=== PATIENT | male | born 1975 | race Hispanic/Latino ===

== ENCOUNTER → 2017-12-17 | Day surgery (SDC) | payer OTHER ==
[~2017-12-17] MED LIST: AMLODIPINE BESYL5 MG PO; ATORVASTATIN CA10 MG PO; BENICAR40 MG; FENTANYL CITRATE/PF 100MCG/2 ML INJ ONE; IMPRIMIS EYE DROPS; METFORMIN HCL500 MG PO; MIDAZOLAM HCL 2 MG/2 ML VIAL ONE; OR PHACO EYE KIT ONE; PREOP PHACO EYE KIT ONE; TRADJENTA5 MG
--- OUTSIDE RECORDS SUMMARY | 2017-12-17 10:40 | XMS REPORT | Continuity of Care Document ---
Author Author [facility] Interface Address Unknown Phone Unavailable Problems Problem Status Onset Date Classification Date Reported Comments Source UNK Active 11/17/2013 [facility] 278.01/44175 Active 11/17/2013 [facility] 530.81 Active 11/17/2013 [facility] Cholesterol level<sup>1</sup> Resolved Problem 12/20/2013 1high [facility] Diabetes mellitus type 2 Resolved Problem 12/20/2013 [facility] Hepatitis A Resolved Problem 12/20/2013 [facility] Sleep apnea<sup>2</sup> Resolved Problem 12/20/2013 2use CPAP [facility] MORBID OBESITY Active [facility] Medications Medication Details Route Status Patient Instructions Ordering Provider Order Date Source Acetaminophen 650 mg, 20.3 mL, Route: PO, Drug form: LIQ, Q4H, Dosing Weight 178.636, kg, PRN Pain Score 1-3, Start date: 12/18/13 14:09:00, Duration: 30 day, Stop date: 01/17/14 14:08:00Notes: Max yrwyvnjtjfshl=8453dl/day (4 gm/day). (Same as: Tylenol) Inactive 12/18/2013 [facility] omeprazole 20 mg oral delayed release capsule 20 mg=1 cap, PO, BID, # 60 cap, 0 Refill(s) Active 12/18/2013 [facility] Sucralfate 100 MG/ML Oral Suspension [Carafate] 1 gm=10 ml, PO, Before Meals & Bedtime, # 200 ml, 0 Refill(s) Active 12/18/2013 [facility] Tylenol with Codeine 120 mg-12 mg/5 mL oral liquid 15 ml, PO, Q4H, Pain, Q4-6H as needed for pain, # 240 mL, 0 Refill(s)Special Instructions: Q4-6H as needed for pain Active 12/18/2013 [facility] Enoxaparin 30 mg, 0.3 mL, Route: SUB-Q, Drug form: INJ, [id number], Dosing Weight 178.636, kg, Start date: 12/18/13 6:00:00, Duration: 30 day, Stop date: 01/16/14 18:00:00Notes: (Same as: Lovenox) Inactive 12/18/2013 [facility] Famotidine 20 mg, 2 mL, Route: IVP, Drug form: INJ, Q12H, Dosing Weight 178.636, kg, Start date: 12/17/13 21:00:00, Duration: 30 day, Stop date: 01/16/14 9:00:00Notes: (Same as: Pepcid) Can be dilute in 5-10cc NS IVP: Slow IV push over at least 2 minutes. No Longer Active 12/18/2013 [facility] Metoclopramide 10 mg, 2 mL, Route: IVP, Drug form: INJ, Q8H-05, Dosing Weight 179.091, kg, Start date: 12/17/13 21:00:00, Duration: 30 day, Stop date: 01/16/14 13:00:00Notes: (Same as: Reglan) No Longer Active 12/18/2013 [facility] Promethazine 12.5 mg, 0.5 mL, Route: IM, Drug form: INJ, Q4Hnow, Dosing Weight 179.091, kg, Start date: 12/17/13 17:00:00, Duration: 30 day, Stop date: 01/16/14 13:00:00Notes: Do not give IV push. (Same as: Phen ergan) No Longer Active 12/17/2013 [facility] Sucralfate 100 MG/ML Oral Suspension [Carafate] 1 gm, 10 mL, Route: PO, Drug form: SUSP, QID-Before Meals, Dosing Weight 179.091, kg, Start date: 12/17/13 16:30:00, Duration: 30 day, Stop date: 01/16/14 11:30:00Notes: Enteral feeds may interfere with the absorption of this medication. Shake well. Take 1 hr before or 2 hrs after antacids, dairy pdt, minerals & meals. (Same As: Carafate) No Longer Active 12/17/2013 [facility] Insulin, Aspart, Human 4 unit, 0.04 mL, Route: SUB-Q, Drug form: SOLN, Bedtime, Dosing Weight 178.636, kg, PRN Blood Glucose Results, Start date: 12/17/13 16:20:00, Duration: 30 day, Stop date: 01/16/14 16:19:00Notes: Roll in palms of hands gently; Do not shake vigorously. (Same as: NovoLOG) "single patient use only" Stable for 28 days at room temperature. Expires in days from Date No Longer Active 12/17/2013 [facility] Glucagon 1 mg, Route: IM, Drug form: PDR/INJ, PRN, Dosing Weight 178.636, kg, PRN Blood Glucose Results, Start date: 12/17/13 16:20:00, Duration: 30 day, Stop date: 01/16/14 16:19:00 No Longer Active 12/17/2013 [facility] Dextrose 50% Syringe 12.5 gm, 25 mL, Route: IVP, Drug Form: INJ, Dosing Weight 178.636, kg, PRN, PRN Blood Glucose Results, Start date: 12/17/13 16:20:00, Duration: 30 day, Stop date: 01/16/14 16:19:00 No Longer Active 12/17/2013 [facility] Ondansetron 4 mg, 2 mL, Route: IVP, Drug form: INJ, Q4H, Dosing Weight 179.091, kg, Start date: 12/17/13 16:00:00, Duration: 30 day, Stop date: 01/16/14 12:00:00Notes: (Same as: Zofran) No Longer Active 12/17/2013 [facility] Enoxaparin 30 mg, Route: SUB-Q, Drug form: INJ, [id number], Dosing Weight 178.636, kg, Start date: 12/17/13 15:00:00, Duration: 30 day, Stop date: 01/16/14 3:00:00 Inactive 12/17/2013 [facility] Acetaminophen 325 MG / Hydrocodone Bitartrate 10 MG Oral Tablet [Conklin 10/325] 1 tab, Route: PO, Dosing Weight 178.636, kg, ONCE, Start date: 12/17/13 14:45:00, Stop date: 12/17/13 14:45:00 Inactive 12/17/2013 [facility] Hydralazine 10 mg, Route: IVP, Q20Min, Dosing Weight 178.636, kg, PRN Elevated BP, Start date: 12/17/13 14:45:00, Duration: 2 doses or times, Stop date: Limited # of times Inactive 12/17/2013 [facility] Metoprolol 1 mg, Route: IVP, Q5Min, Dosing Weight 178.636, kg, PRN Other -See Comment, Start date: 12/17/13 14:45:00, Duration: 5 doses or times, Stop date: Limited # of times Inactive 12/17/2013 [facility] Flumazenil 0.2 mg, Route: IVP, PRN, Dosing Weight 178.636, kg, PRN Benzodiazepine Reversal, Initial dose, Start date: 12/17/13 14:45:00, Duration: 30 day, Stop date: 01/16/14 14:44:00 Inactive 12/17/2013 [facility] Ondansetron 4 mg, Route: IVP, ONCE, Dosing Weight 178.636, kg, PRN Nausea & Vomiting, Start date: 12/17/13 14:45:00 Inactive 12/17/2013 [facility] Fentanyl 25 microgram, Route: IVP, Q5Min, Dosing Weight 178.636, kg, PRN Pain Score 4-6, Start date: 12/17/13 14:45:00, Duration: 4 doses or times, Stop date: Limited # of times Inactive 12/17/2013 [facility] Hydromorphone 0.5 mg, Route: IVP, Q5Min, Dosing Weight 178.636, kg, PRN Pain Score 7-10, Start date: 12/17/13 14:45:00, Duration: 4 doses or times, Stop date: Limited # of times Inactive 12/17/2013 [facility] Oxycodone 5 mg, Route: PO, Drug form: TAB, Q4H, Dosing Weight 178.636, kg, PRN Pain Score 4-6, Start date: 12/17/13 14:45:00, Duration: 30 day, Stop date: 01/16/14 14:44:00 Inactive 12/17/2013 [facility] Naloxone 0.04 mg, Route: IVP, Q2MIN, Dosing Weight 178.636, kg, PRN Narcotic Reversal, Start date: 12/17/13 14:45:00, Duration: 8 doses or times, Stop date: Limited # of times Inactive 12/17/2013 [facility] Promethazine 25 mg, 1 supp, Route: SC, Drug form: SUPP, Q4H, Dosing Weight 179.091, kg, PRN Nausea & Vomiting, Start date: 12/17/13 14:09:00, Duration: 30 day, Stop date: 01/16/14 14:08:00Notes: (Same as: Phenerg an) No Longer Active 12/17/2013 [facility] Hydromorphone 0.5 mg, 0.5 mL, Route: IV, Drug form: INJ, Q3H, Dosing Weight 179.091, kg, PRN Pain Score 7-10, Start date: 12/17/13 14:09:00, Duration: 30 day, Stop date: 01/16/14 14:08:00 No Longer Active 12/17/2013 [facility] LR IV 1,000 mL 1,000 mL, Rate: 125 ml/hr, Infuse over: 8 hr, Route: IV, Dosing Weight 178.636 kg, Total Volume: 1,000, Start date: 12/17/13 14:09:00, Duration: 30 day, Stop date: 01/16/14 14:08:00 No Longer Active 12/17/2013 [facility] Metoprolol 2.5 mg, 2.5 mL, Route: IVP, Drug form: INJ, Q6H, Dosing Weight 178.636, kg, PRN Elevated BP, Systolic BP >180 or Diastolic BP >100, Start date: 12/17/13 14:09:00, Duration: 30 day, Stop date: 01/16/14 14:08:00Notes: (Same as: Lopressor) Push over 2 minutes No Longer Active 12/17/2013 [facility] Calcium Chloride 0.0014 MEQ/ML / Potassium Chloride 0.004 MEQ/ML / Sodium Chloride 0.103 MEQ/ML / Sodium Lactate 0.028 MEQ/ML Injectable Solution 1,000 mL, Rate: 125 ml/hr, Infuse over: 8 hr, Route: IV, Dosing Weight 178.636 kg, Total Volume: 1,000, Start date: 12/17/13 14:09:00, Duration: 30 day, Stop date: 01/16/14 14:08:00 No Longer Active 12/17/2013 [facility] Cefazolin 2 gm, Route: IV, ONCE, Dosing Weight 178.636, kg, Start date: 12/17/13 12:53:00, Duration: 1 doses or times, Stop date: 12/17/13 12:53:00 Inactive 12/17/2013 [facility] Naloxone 0.1 mg, Route: IVP, Q2MIN, Dosing Weight 178.636, kg, PRN Narcotic Reversal, Start date: 11/30/13 10:13:00, Duration: 4 doses or times, Stop date: Limited # of times Inactive 11/30/2013 [facility] Flumazenil 0.1 mg, Route: IVP, Q5Min, Dosing Weight 178.636, kg, PRN Other -See Comment, Start date: 11/30/13 10:13:00, Duration: 30 day, Stop date: 12/30/13 9:12:00 Inactive 11/30/2013 [facility] Sodium Chloride 0.154 MEQ/ML Injectable Solution 1,000 mL, Rate: 25 ml/hr, Infuse over: 40 hr, Route: IV, Dosing Weight 178.636 kg, Total Volume: 1,000, Start date: 11/30/13 9:41:00, Duration: 30 day, Stop date: 12/30/13 9:40:00 Inactive 11/30/2013 [facility] Emend 40 mg, 1 cap, Route: PO, Drug form: CAP, PRE OP, Dosing Weight 179.091, kg, Start date: 11/24/13 17:00:00, Duration: 25 day, Stop date: 12/19/13 15:59:00Notes: Same as: Emend restricted to the Hematolog y/Oncology service for high and moderate emetogenic regimen according to ASCO Guidelines Passthrough Only for Chemotherapy-Induced nausea & vomiting No Longer Active 11/24/2013 [facility] Cefazolin 2 gm, 100 mL, Route: IVPB, Drug form: INJ, ONCALL, Dosing Weight 178.636, kg, Start date: 11/24/13 17:00:00, Duration: 25 day, Stop date: 12/19/13 15:59:00Notes: Same as: Ancef No Longer Active 11/24/2013 [facility] 72 HR Scopolamine 0.0139 MG/HR Transdermal Patch 1 patch, Route: TOP, Drug Form: ERFILM, Dosing Weight 179.091, kg, ONCE, Start date: 11/24/13 16:17:00, Stop date: 11/24/13 16:17:00Notes: Change patch every 72 hours (Same as: Transderm-Scop) Inactive 11/24/2013 [facility] al571l 1,000 mL 1,000 mL, Rate: 100 ml/hr, Infuse over: 10 hr, Route: IV, Dosing Weight 178.636 kg, Total Volume: 1,000, Start date: 11/24/13 16:17:00, Duration: 25 day, Stop date: 12/19/13 16:16:00 No Longer Active 11/24/2013 [facility] heparin sodium, porcine 2500 UNT/ML Injectable Solution 5,000 unit, 1 mL, Route: SUB-Q, Drug form: INJ, ONCE, Dosing Weight 179.091, kg, Start date: 11/24/13 16:17:00, Stop date: 11/24/13 16:17:00Notes: porcine heparin Inactive 11/24/2013 [facility] Calcium Chloride 0.0014 MEQ/ML / Potassium Chloride 0.004 MEQ/ML / Sodium Chloride 0.103 MEQ/ML / Sodium Lactate 0.028 MEQ/ML Injectable Solution 1,000 mL, Rate: 125 ml/hr, Infuse over: 8 hr, Route: IV, Dosing Weight 178.636 kg, Total Volume: 1,000, Start date: 11/24/13 16:17:00, Duration: 25 day, Stop date: 12/19/13 16:16:00 No Longer Active 11/24/2013 [facility] gemfibrozil 600 mg oral tablet 600 mg=1 tab, PO, BID, # 180 tab, 0 Refill(s) Active 11/24/2013 [facility] Metformin hydrochloride 1000 MG Oral Tablet 1,000 mg=1 tab, PO, BID, # 30 tab, 0 Refill(s) Active 11/24/2013 [facility] atorvastatin 20 mg, PO, Bedtime, 0 Refill(s) Active 11/24/2013 [facility] Lactated Ringers IV 500 mL 500 mL, Rate: 40 ml/hr, Infuse over: 12.5 hr, Route: IV, Dosing Weight 178.636 kg, Total Volume: 500, Start date: 11/24/13 15:45:00, Duration: 25 day, Stop date: 12/19/13 15:44:00 No Longer Active 11/24/2013 [facility] Allergies, Adverse Reactions, Alerts Substance Category Reaction Severity Reaction type Status Date Reported Comments Source NKDA Assertion Drug allergy Active [facility] Immunizations Immunization Date Given Site Status Last Updated Comments Source Results Order Name Results Value Reference Range Date Interpretation Comments Source CHEM PANEL eGFR 137 mL/min/1.73m2 12/18/2013 1Result Comment: The eGFR is calculated using the CKD-EPI formula. In most young, healthy individuals the eGFR will be >90 mL/min/1.73m2. The eGFR declines with age. An eGFR of 60-89 may be normal in some populations, particularly the elderly, for whom the CKD-EPI formula has not been extensively validated. Use of the eGFR is not recommended in the following populations: Individuals with unstable creatinine concentrations, including patients and those with serious co-morbid conditions. Patients with extremes in muscle mass or diet. The data above are obtained from the National Kidney Disease Education Program (NKDEP) which additionally recommends that when the eGFR is used in patients with extremes of body mass index for purposes of drug dosing, the eGFR should be multiplied by the estimated BMI. [facility] CHEM PANEL Sodium Lvl 141 meq/L 135 - 145 12/18/2013 [facility] CHEM PANEL Albumin Lvl 3.3 g/dL 3.5 - 5.0 12/18/2013 [facility] CHEM PANEL Glucose Lvl 122 mg/dL 70 - 99 12/18/2013 2Interpretive Data: Adult reference range values reflect the clinical guidelines of the [employer]. [facility] CHEM PANEL BUN 4 mg/dL 7 - 22 12/18/2013 [facility] CHEM PANEL Creatinine Lvl 0.7 mg/dL 0.5 - 1.4 12/18/2013 [facility] CHEM PANEL Chloride Lvl 103 meq/L 95 - 109 12/18/2013 [facility] CHEM PANEL Calcium Lvl 8.3 mg/dL 8.5 - 10.5 12/18/2013 [facility] CHEM PANEL Potassium Lvl 3.6 meq/L 3.5 - 5.1 12/18/2013 [facility] CHEM PANEL CO2 28 meq/L 24 - 32 12/18/2013 [facility] CHEM PANEL Alk Phos 66 unit/L 39 - 136 12/18/2013 [facility] CHEM PANEL Bili Total 0.6 mg/dL 0.2 - 1.3 12/18/2013 [facility] CHEM PANEL AST 19 unit/L 0 - 37 12/18/2013 [facility] CHEM PANEL ALT 36 unit/L 0 - 65 12/18/2013 [facility] CHEM PANEL Total Protein 6.9 g/dL 6.4 - 8.4 12/18/2013 [facility] CHEM PANEL B/C Ratio 6 6 - 25 12/18/2013 [facility] CHEM PANEL AGAP 13.6 meq/L 10.0 - 20.0 12/18/2013 [facility] CHEM PANEL A/G Ratio 0.9 0.7 - 1.6 12/18/2013 [facility] CHEM PANEL Globulin 3.6 g/dL 2.0 - 4.0 12/18/2013 [facility] HEMATOLOGY Hct 40.4 % 42.0 - 54.0 12/18/2013 [facility] MCV 90.0 fL 80.0 - 94.0 12/18/2013 [facility] HEMATOLOGY Hgb 13.5 g/dL 14.0 - 18.0 12/18/2013 [facility] HEMATOLOGY WBC 12.9 K/CMM 3.7 - 10.4 12/18/2013 [facility] HEMATOLOGY RBC 4.49 M/CMM 4.70 - 6.10 12/18/2013 [facility] MPV 7.4 fL 7.4 - 10.4 12/18/2013 [facility] Platelet 290 K/CMM 133 - 450 12/18/2013 [facility] MCH 30.0 pg 27.0 - 31.0 12/18/2013 [facility] HEMATOLOGY RDW 13.4 % 11.5 - 14.5 12/18/2013 [facility] MCHC 33.4 g/dL 32.0 - 36.0 12/18/2013 [facility] HEMATOLOGY Segs 77.6 % 45.0 - 75.0 12/18/2013 [facility] HEMATOLOGY Lymphocytes 13.1 % 20.0 - 40.0 12/18/2013 [facility] Lymphocytes # 1.7 K/CMM 1.0 - 5.5 12/18/2013 [facility] HEMATOLOGY Monocytes # 1.2 K/CMM 0.0 - 0.8 12/18/2013 [facility] HEMATOLOGY Segs-Bands # 10.0 K/CMM 1.5 - 8.1 12/18/2013 [facility] HEMATOLOGY Basophils 0.2 % 0.0 - 1.0 12/18/2013 [facility] HEMATOLOGY Monocytes 9.0 % 2.0 - 12.0 12/18/2013 [facility] HEMATOLOGY Eosinophils 0.1 % 0.0 - 4.0 12/18/2013 [facility] Upper GI Series w water soluble DX Upper GI Series w water soluble DX PROCEDURE: Stomach UGI (water soluble contrast) REASON FOR EXAM: See Clinic Indication CLINICAL INFORMATION Weight Loss Gastrografin upper GI series: CLINICAL HISTORY: Status post gastric sleeve, evaluate for obstruction, leaks. Multiple portable fluoroscopic spot images of the esophagus and stomach were obtained with Omnipaque. There is prompt passage of contrast from the esophagus into the stomach. Elongated tubular appearance of the stomach is consistent with patient's history of a gastric sleeve. There is no evidence for obstruction. No leakage of contrast is identified outside the lumen of the stomach. Delayed images demonstrate contrast into the proximal small bowel. IMPRESSION: Negative study. No evidence for obstruction or leakage of contrast outside the lumen of the stomach. Fluoro time: 1 minute. SL: 13 12/18/2013 - - Read by: Jim Marquez MD Dictated Date/time: 12/18/13 07:36 Electronically Signed by: Jim Marquez MD 12/18/13 07:38 FINAL REPORT [facility] ANEMIA STUDY Vitamin B12 Lvl 548 pg/mL 254 - 1320 11/24/2013 [facility] CHEM PANEL Magnesium Lvl 1.7 mg/dL 1.8 - 2.4 11/24/2013 [facility] CHEM PANEL BUN 14 mg/dL 7 - 22 11/24/2013 [facility] CHEM PANEL Glucose Lvl 95 mg/dL 70 - 99 11/24/2013 2Interpretive Data: Adult reference range values reflect the clinical guidelines of the [employer]. [facility] CHEM PANEL Creatinine Lvl 0.8 mg/dL 0.5 - 1.4 11/24/2013 [facility] CHEM PANEL Potassium Lvl 3.9 meq/L 3.5 - 5.1 11/24/2013 [facility] CHEM PANEL Sodium Lvl 139 meq/L 135 - 145 11/24/2013 [facility] CHEM PANEL Alk Phos 71 unit/L 39 - 136 11/24/2013 [facility] CHEM PANEL AST 22 unit/L 0 - 37 11/24/2013 [facility] CHEM PANEL ALT 42 unit/L 0 - 65 11/24/2013 [facility] CHEM PANEL Albumin Lvl 3.7 g/dL 3.5 - 5.0 11/24/2013 [facility] CHEM PANEL A/G Ratio 1.0 0.7 - 1.6 11/24/2013 [facility] CHEM PANEL Globulin 3.8 g/dL 2.0 - 4.0 11/24/2013 [facility] CHEM PANEL AGAP 9.9 meq/L 10.0 - 20.0 11/24/2013 [facility] CHEM PANEL Bili Total 0.3 mg/dL 0.2 - 1.3 11/24/2013 [facility] CHEM PANEL eGFR 130 mL/min/1.73m2 11/24/2013 1Result Comment: The eGFR is calculated using the CKD-EPI formula. In most young, healthy individuals the eGFR will be >90 mL/min/1.73m2. The eGFR declines with age. An eGFR of 60-89 may be normal in some populations, particularly the elderly, for whom the CKD-EPI formula has not been extensively validated. Use of the eGFR is not recommended in the following populations: Individuals with unstable creatinine concentrations, including patients and those with serious co-morbid conditions. Patients with extremes in muscle mass or diet. The data above are obtained from the National Kidney Disease Education Program (NKDEP) which additionally recommends that when the eGFR is used in patients with extremes of body mass index for purposes of drug dosing, the eGFR should be multiplied by the estimated BMI. [facility] CHEM PANEL B/C Ratio 18 6 - 25 11/24/2013 [facility] CHEM PANEL CO2 28 meq/L 24 - 32 11/24/2013 [facility] CHEM PANEL Chloride Lvl 105 meq/L 95 - 109 11/24/2013 [facility] CHEM PANEL Calcium Lvl 9.4 mg/dL 8.5 - 10.5 11/24/2013 [facility] CHEM PANEL Total Protein 7.5 g/dL 6.4 - 8.4 11/24/2013 [facility] CHEM PANEL Albumin Lvl 3.7 g/dL 3.5 - 5.0 11/24/2013 [facility] CHEM PANEL AST 22 unit/L 0 - 37 11/24/2013 [facility] CHEM PANEL Alk Phos 72 unit/L 39 - 136 11/24/2013 [facility] CHEM PANEL Bili Total 0.3 mg/dL 0.2 - 1.3 11/24/2013 [facility] CHEM PANEL ALT 42 unit/L 0 - 65 11/24/2013 [facility] CHEM PANEL Bili Direct 0.1 mg/dL 0.0 - 0.3 11/24/2013 [facility] CHEM PANEL Total Protein 7.5 g/dL 6.4 - 8.4 11/24/2013 [facility] CHEM PANEL A/G Ratio 1.0 0.7 - 1.6 11/24/2013 [facility] CHEM PANEL Globulin 3.8 g/dL 2.0 - 4.0 11/24/2013 [facility] CHEM PANEL Bili Indirect 0.2 mg/dL 0.0 - 1.0 11/24/2013 [facility] HEMATOLOGY PTT 31.5 s 22.9 - 35.8 11/24/2013 5Interpretive Data: Heparin Therapeutic Range: 57 - 92 Seconds [facility] HEMATOLOGY PT 13.9 s 12.0 - 14.7 11/24/2013 [facility] HEMATOLOGY INR 1.07 0.85 - 1.17 11/24/2013 4Interpretive Data: RECOMMENDED RANGES FOR PROTIME INR: 2.0-3.0 for most medical and surgical thromboembolic states. 2.5-3.5 for artificial heart valves and recurrent embolism. INR SHOULD BE USED ONLY FOR PATIENTS ON STABLE ANTICOAGULANT THERAPY. [facility] IMMUNOLOGY 21-Hydroxylase Antibody NEGATIVE NEGATIVE 11/24/2013 3Result Comment: Patient with indeterminate result may benefit from serial testing to confirm positivity. Test Performed at: [facility] [address] [id number] David Blue MD, PhD [facility] Vital Signs Vital Sign Value Date Comments Source Heart Rate 89 12/18/2013 [facility] Respitory Rate 18 12/18/2013 [facility] Diastolic (mm Hg) 77 12/18/2013 [facility] Systolic (mm Hg) 137 12/18/2013 [facility] Temperature Oral (F) 98.7 F 12/18/2013 [facility] Respitory Rate 18 12/18/2013 [facility] Heart Rate 59 12/18/2013 [facility] Diastolic (mm Hg) 73 12/18/2013 [facility] Systolic (mm Hg) 125 12/18/2013 [facility] Temperature Oral (F) 98.9 F 12/18/2013 [facility] Respitory Rate 20 12/18/2013 [facility] Diastolic (mm Hg) 79 12/18/2013 [facility] Systolic (mm Hg) 131 12/18/2013 [facility] Heart Rate 74 12/18/2013 [facility] Temperature Oral (F) 98.6 F 12/18/2013 [facility] BMI Calculated 51.99 12/18/2013 [facility] Weight 169.091 12/18/2013 [facility] Height 180.34 cm 12/18/2013 [facility] Respitory Rate 16 11/30/2013 [facility] Systolic (mm Hg) 123 11/30/2013 [facility] Diastolic (mm Hg) 56 11/30/2013 [facility] Diastolic (mm Hg) 68 11/30/2013 [facility] Respitory Rate 16 11/30/2013 [facility] Systolic (mm Hg) 106 11/30/2013 [facility] Systolic (mm Hg) 132 11/30/2013 [facility] Diastolic (mm Hg) 58 11/30/2013 [facility] Respitory Rate 16 11/30/2013 [facility] Heart Rate 70 11/30/2013 [facility] Weight 178.636 11/24/2013 [facility] BMI Calculated 54.93 11/24/2013 [facility] Height 180.34 cm 11/24/2013 [facility] Temperature Oral (F) 98.7 F 11/24/2013 [facility] Heart Rate 79 11/24/2013 [facility] Height 180.34 cm 11/24/2013 [facility] Weight 178.636 11/24/2013 [facility] BMI Calculated 54.93 11/24/2013 [facility] Encounters Location Location Details Encounter Type Encounter Number Reason For Visit Attending Provider ADM Date DC Date Status Source [facility] Bedded Outpatient [id number] Gagan Claudy 11/30/2013 11/30/2013 [facility] Inpatient [id number] Gagan Claudy 12/17/2013 12/18/2013 [facility] Procedures Procedure Code Date Perfomer Comments Source Hernia repair [id number] [facility] Operation [id number] [facility] Tonsillectomy [id number] [facility] Esophagogastroduodenoscopy [id number] [facility]
--- OUTSIDE RECORDS SUMMARY | 2017-12-17 10:40 | XMS REPORT | Summary of Care ---
Author Organization Unknown Address Unknown Phone Unavailable Encounter HQ Jac_dayne(SOFIYA) [id number] Date(s): 11/30/13 - 11/30/13 [facility] [address] Discharge Disposition: Home Physician Attending: Gagan Loco MD Physician Admitting: Gagan Loco MD Physician_Referring: Gagan Loco MD Reason for Visit 530.81 Vital Signs 1 2 3 Most recent to oldest [Reference Range]: 180.34 cm (11/24/13 3:45 PM) Height 98.7 DegF (11/24/13 3:53 PM) Temperature Oral [96.4-99.1 DegF] 123 mmHg (11/30/13 10:25 AM) 106 mmHg (11/30/13 10:10 AM) 132 mmHg (11/30/13 9:55 AM) Systolic Blood Pressure [90-140 mmHg] 56 mmHg *LOW* (11/30/13 10:25 AM) 68 mmHg (11/30/13 10:10 AM) 58 mmHg *LOW* (11/30/13 9:55 AM) Diastolic Blood Pressure [60-90 mmHg] 16 BRMIN (11/30/13 10:25 AM) 16 BRMIN (11/30/13 10:10 AM) 16 BRMIN (11/30/13 9:55 AM) Respiratory Rate [14-20 BRMIN] 70 bpm (11/30/13 9:36 AM) 79 bpm (11/24/13 3:53 PM) Peripheral Pulse Rate [60-100 bpm] 178.636 kg (11/24/13 3:45 PM) Weight 54.93 m2 (11/24/13 3:45 PM) Body Mass Index Problem List Condition Effective Dates Status Health Status Informant Cholesterol Resolved level(Confirmed)1 Diabetes mellitus Resolved type 2(Confirmed) Hepatitis Resolved A(Confirmed) Sleep Resolved apnea(Confirmed)2 1high 2use CPAP Allergies, Adverse Reactions, Alerts Substance Reaction Severity Status NKDA Active Medications atorvastatin 20 mg, PO, Bedtime, 0 Refill(s) Start Date: 11/24/13 Status: Ordered flumazenil 0.1 mg, Route: IVP, Q5Min, Dosing Weight 178.636, kg, PRN Other -See Comment, St art date: 11/30/13 10:13:00, Duration: 30 day, Stop date: 12/30/13 9:12:00 Start Date: 11/30/13 Stop Date: 11/30/13 Status: Discontinued flumazenil 0.2 mg, Route: IVP, PRN, Dosing Weight 178.636, kg, PRN Other -See Comment, Enrrique t date: 11/30/13 10:13:00, Duration: 1 doses or times, Stop date: Limited # of t imes Start Date: 11/30/13 Stop Date: 11/30/13 Status: Discontinued gemfibrozil 600 mg oral tablet 600 mg=1 tab, PO, BID, # 180 tab, 0 Refill(s) Start Date: 11/24/13 Status: Ordered Lactated Ringers IV 500 mL 500 mL, Rate: 40 ml/hr, Infuse over: 12.5 hr, Route: IV, Dosing Weight 178.636 k g, Total Volume: 500, Start date: 11/24/13 15:45:00, Duration: 25 day, Stop date : 12/19/13 15:44:00 Start Date: 11/24/13 Stop Date: 11/30/13 Status: Discontinued metFORMIN 1000 mg oral tablet 1,000 mg=1 tab, PO, BID, # 30 tab, 0 Refill(s) Start Date: 11/24/13 Status: Ordered naloxone 0.1 mg, Route: IVP, Q2MIN, Dosing Weight 178.636, kg, PRN Narcotic Reversal, Sta rt date: 11/30/13 10:13:00, Duration: 4 doses or times, Stop date: Limited # of times Start Date: 11/30/13 Stop Date: 11/30/13 Status: Discontinued Sodium Chloride 0.9% IV 1000 mL 1,000 mL, Rate: 25 ml/hr, Infuse over: 40 hr, Route: IV, Dosing Weight 178.636 k g, Total Volume: 1,000, Start date: 11/30/13 9:41:00, Duration: 30 day, Stop praneeth e: 12/30/13 9:40:00 Start Date: 11/30/13 Stop Date: 11/30/13 Status: Discontinued Results ELECTROLYTES Most recent to 1 2 oldest [Reference Range]: Sodium Lvl [135-145 139 mEq/L mEq/L] (11/24/13 4:30 PM) Potassium Lvl 3.9 mEq/L [3.5-5.1 mEq/L] (11/24/13 4:30 PM) Chloride Lvl [95-109 105 mEq/L mEq/L] (11/24/13 4:30 PM) CO2 [24-32 mEq/L] 28 mEq/L (11/24/13 4:30 PM) AGAP [10.0-20.0 9.9 mEq/L mEq/L] *LOW* (11/24/13 4:30 PM) CHEM PANEL Most recent to 1 2 oldest [Reference Range]: Creatinine Lvl 0.8 mg/dL [0.5-1.4 mg/dL] (11/24/13 4:30 PM) eGFR 130 mL/min/1.73m2 1 *NA* (11/24/13 4:30 PM) BUN [7-22 mg/dL] 14 mg/dL (11/24/13 4:30 PM) B/C Ratio [6-25] 18 (11/24/13 4:30 PM) Glucose Lvl [70-99 95 mg/dL 2 mg/dL] (11/24/13 4:30 PM) Total Protein 7.5 g/dL 7.5 g/dL [6.4-8.4 g/dL] (11/24/13 4:30 PM) (11/24/13 4:30 PM) Albumin Lvl [3.5-5.0 3.7 g/dL 3.7 g/dL g/dL] (11/24/13 4:30 PM) (11/24/13 4:30 PM) Globulin [2.0-4.0 3.8 g/dL 3.8 g/dL g/dL] (11/24/13 4:30 PM) (11/24/13 4:30 PM) A/G Ratio [0.7-1.6] 1.0 1.0 (11/24/13 4:30 PM) (11/24/13 4:30 PM) Calcium Lvl 9.4 mg/dL [8.5-10.5 mg/dL] (11/24/13 4:30 PM) Magnesium Lvl 1.7 mg/dL [1.8-2.4 mg/dL] *LOW* (11/24/13 4:30 PM) ALT [0-65 unit/L] 42 unit/L 42 unit/L (11/24/13 4:30 PM) (11/24/13 4:30 PM) AST [0-37 unit/L] 22 unit/L 22 unit/L (11/24/13 4:30 PM) (11/24/13 4:30 PM) Alk Phos [39-136 71 unit/L 72 unit/L unit/L] (11/24/13 4:30 PM) (11/24/13 4:30 PM) Bili Total [0.2-1.3 0.3 mg/dL 0.3 mg/dL mg/dL] (11/24/13 4:30 PM) (11/24/13 4:30 PM) Bili Direct [0.0-0.3 0.1 mg/dL mg/dL] (11/24/13 4:30 PM) Bili Indirect 0.2 mg/dL [0.0-1.0 mg/dL] (11/24/13 4:30 PM) 1Result Comment: The eGFR is calculated using [...] from the National Kid[employer] Education Program ( NKDEP) which additionally recommends that when the eGFR is used in patients with extremes of body mass index for purposes of drug dosing, the eGFR should be mul tiplied by the estimated BMI. 2Interpretive Data: Adult reference range values reflect the clinical guidelines of the [place] [employer]. ANEMIA STUDY Most recent to 1 2 oldest [Reference Range]: Vitamin B12 Lvl 548 pg/mL [254-1320 pg/mL] (11/24/13 4:30 PM) IMMUNOLOGY Most recent to 1 2 oldest [Reference Range]: 21-Hydroxylase NEGATIVE 3 Antibody [NEGATIVE] *NA* (11/24/13 4:30 PM) 3Result Comment: Patient with indeterminate result may benefit from serial testing to confirm positivity. Test Performed at: [facility] [address] [id number] David Blue MD, PhD HEMATOLOGY Most recent to 1 2 oldest [Reference Range]: PT [12.0-14.7 13.9 seconds seconds] (11/24/13 4:30 PM) INR [0.85-1.17] 1.07 4 (11/24/13 4:30 PM) PTT [22.9-35.8 31.5 seconds 5 seconds] (11/24/13 4:30 PM) 4Interpretive Data: RECOMMENDED RANGES FOR PROTIME INR: 2.0-3.0 for most medical and surgical thromboembolic states. 2.5-3.5 for artificial heart valves and recurrent embolism. INR SHOULD BE USED ONLY FOR PATIENTS ON STABLE ANTICOAGULANT THERAPY. 5Interpretive Data: Heparin Therapeutic Range: 57 - 92 Seconds Medications Administered During Your Visit No data available for this section Immunizations No data available for this section Procedures Procedure Type Body Site Date of Procedure Related Diagnosis Hernia repair Operation Tonsillectomy Social History Social History Type Response Smoking Status Current every day smoker, Type: Cigars, Exposure to Tobacco Smoke None, Cigarette Smoking Last 365 Days No, Reg Smoking Cessation Counseling No
--- OUTSIDE RECORDS SUMMARY | 2017-12-17 10:40 | XMS REPORT | Summary of Care ---
Author Organization Unknown Address Unknown Phone Unavailable Encounter HQ Jac_dayne(SOFIYA) [id number] Date(s): 12/17/13 - 12/18/13 [facility] [address] [address] [place], [place] [id number] [place] [address] Discharge Disposition: Home Physician Attending: Sam Lane DO Physician Admitting: Sam Lane DO Physician_Referring: Gagan Loco MD Reason for Visit 278.01/75912 Vital Signs 1 2 3 Most recent to oldest [Reference Range]: 180.34 cm (12/17/13 6:54 PM) 180.34 cm (11/24/13 4:16 PM) Height 98.7 DegF (12/18/13 11:51 AM) 98.9 DegF (12/18/13 8:00 AM) 98.6 DegF (12/18/13 3:37 AM) Temperature Oral [96.4-99.1 DegF] 137 mmHg (12/18/13 11:51 AM) 125 mmHg (12/18/13 8:00 AM) 131 mmHg (12/18/13 3:37 AM) Systolic Blood Pressure [90-140 mmHg] 77 mmHg (12/18/13 11:51 AM) 73 mmHg (12/18/13 8:00 AM) 79 mmHg (12/18/13 3:37 AM) Diastolic Blood Pressure [60-90 mmHg] 18 BRMIN (12/18/13 11:51 AM) 18 BRMIN (12/18/13 8:00 AM) 20 BRMIN (12/18/13 7:32 AM) Respiratory Rate [14-20 BRMIN] 89 bpm (12/18/13 11:51 AM) 59 bpm *LOW* (12/18/13 8:00 AM) 74 bpm (12/18/13 3:37 AM) Peripheral Pulse Rate [60-100 bpm] 169.091 kg (12/17/13 6:54 PM) 178.636 kg (11/24/13 4:16 PM) Weight 51.99 m2 (12/17/13 6:54 PM) 54.93 m2 (11/24/13 4:16 PM) Body Mass Index Problem List Condition Effective Dates Status Health Status Informant Cholesterol Resolved level(Confirmed)1 Diabetes mellitus Resolved type 2(Confirmed) Hepatitis Resolved A(Confirmed) Sleep Resolved apnea(Confirmed)2 1high 2use CPAP Allergies, Adverse Reactions, Alerts Substance Reaction Severity Status NKDA Active Medications acetaminophen 650 mg, 20.3 mL, Route: PO, Drug form: LIQ, Q4H, Dosing Weight 178.636, kg, PRN Pain Score 1-3, Start date: 12/18/13 14:09:00, Duration: 30 day, Stop date: 08/24 14:08:00 Notes: Max buqxqgzjllafg=6124wn/day (4 gm/day). (Same as: Tylenol) Start Date: 12/18/13 Stop Date: 12/18/13 Status: Canceled Carafate 1 g/10 mL oral suspension 1 gm=10 ml, PO, Before Meals & Bedtime, # 200 ml, 0 Refill(s) Start Date: 12/18/13 Status: Ordered Carafate 1 g/10 mL oral suspension 1 gm, 10 mL, Route: PO, Drug form: SUSP, QID-Before Meals, Dosing Weight 179.091 , kg, Start date: 12/17/13 16:30:00, Duration: 30 day, Stop date: 01/16/14 11:30 :00 Notes: Enteral feeds may interfere with the absorption of this medication. Mirza e well. Take 1 hr before or 2 hrs after antacids, dairy pdt, minerals & meals. (Same As: Carafate) Start Date: 12/17/13 Stop Date: 12/18/13 Status: Discontinued ceFAZolin 2 gm, Route: IV, ONCE, Dosing Weight 178.636, kg, Start date: 12/17/13 12:53:00, Duration: 1 doses or times, Stop date: 12/17/13 12:53:00 Start Date: 12/17/13 Stop Date: 12/17/13 Status: Completed ceFAZolin 2 gm, 100 mL, Route: IVPB, Drug form: INJ, ONCALL, Dosing Weight 178.636, kg, St art date: 11/24/13 17:00:00, Duration: 25 day, Stop date: 12/19/13 15:59:00 Notes: Same as: Ancef Start Date: 11/24/13 Stop Date: 12/18/13 Status: Discontinued Dextrose 50% Syringe 12.5 gm, 25 mL, Route: IVP, Drug Form: INJ, Dosing Weight 178.636, kg, PRN, PRN Blood Glucose Results, Start date: 12/17/13 16:20:00, Duration: 30 day, Stop praneeth e: 01/16/14 16:19:00 Start Date: 12/17/13 Stop Date: 12/18/13 Status: Discontinued Dextrose 50% Syringe 25 gm, 50 mL, Route: IVP, Drug Form: INJ, Dosing Weight 178.636, kg, PRN, PRN Bl ood Glucose Results, Start date: 12/17/13 16:20:00, Duration: 30 day, Stop date: 01/16/14 16:19:00 Start Date: 12/17/13 Stop Date: 12/18/13 Status: Discontinued Emend 40 mg, 1 cap, Route: PO, Drug form: CAP, PRE OP, Dosing Weight 179.091, kg, Star t date: 11/24/13 17:00:00, Duration: 25 day, Stop date: 12/19/13 15:59:00 Notes: Same as: Emendrestricted to the Hematology/Oncology service for high and moderate emetogenic regimen according to ASCO Guidelines PassthroughOnly for Ch emotherapy-Induced nausea & vomiting Start Date: 11/24/13 Stop Date: 12/18/13 Status: Discontinued enoxaparin 30 mg, Route: SUB-Q, Drug form: INJ, [id number], Dosing Weight 178.636, kg, Start date: 12/17/13 15:00:00, Duration: 30 day, Stop date: 01/16/14 3:00:00 Start Date: 12/17/13 Stop Date: 12/17/13 Status: Discontinued enoxaparin 30 mg, 0.3 mL, Route: SUB-Q, Drug form: INJ, [id number], Dosing Weight 178.636, kg , Start date: 12/18/13 6:00:00, Duration: 30 day, Stop date: 01/16/14 18:00:00 Notes: (Same as: Lovenox) Start Date: 12/18/13 Stop Date: 12/18/13 Status: Discontinued famotidine 20 mg, 2 mL, Route: IVP, Drug form: INJ, Q12H, Dosing Weight 178.636, kg, Start date: 12/17/13 21:00:00, Duration: 30 day, Stop date: 01/16/14 9:00:00 Notes: (Same as: Pepcid)Can be dilute in 5-10cc NS IVP: Slow IV push over at le ast 2 minutes. Start Date: 12/17/13 Stop Date: 12/18/13 Status: Discontinued fentaNYL 25 microgram, Route: IVP, Q5Min, Dosing Weight 178.636, kg, PRN Pain Score 4-6, Start date: 12/17/13 14:45:00, Duration: 4 doses or times, Stop date: Limited # of times Start Date: 12/17/13 Stop Date: 12/17/13 Status: Discontinued flumazenil 0.2 mg, Route: IVP, PRN, Dosing Weight 178.636, kg, PRN Benzodiazepine Reversal, Initial dose, Start date: 12/17/13 14:45:00, Duration: 30 day, Stop date: 01/16 14:44:00 Start Date: 12/17/13 Stop Date: 12/17/13 Status: Discontinued glucagon 1 mg, Route: IM, Drug form: PDR/INJ, PRN, Dosing Weight 178.636, kg, PRN Blood G lucose Results, Start date: 12/17/13 16:20:00, Duration: 30 day, Stop date: 07/25 16:19:00 Start Date: 12/17/13 Stop Date: 12/18/13 Status: Discontinued heparin 5000 units/mL injectable solution 5,000 unit, 1 mL, Route: SUB-Q, Drug form: INJ, ONCE, Dosing Weight 179.091, kg, Start date: 11/24/13 16:17:00, Stop date: 11/24/13 16:17:00 Notes: porcine heparin Start Date: 11/24/13 Stop Date: 11/24/13 Status: Completed hydrALAZINE 10 mg, Route: IVP, Q20Min, Dosing Weight 178.636, kg, PRN Elevated BP, Start praneeth e: 12/17/13 14:45:00, Duration: 2 doses or times, Stop date: Limited # of times Start Date: 12/17/13 Stop Date: 12/17/13 Status: Discontinued hydromorphone 0.5 mg, 0.5 mL, Route: IV, Drug form: INJ, Q3H, Dosing Weight 179.091, kg, PRN P ain Score 7-10, Start date: 12/17/13 14:09:00, Duration: 30 day, Stop date: 07/25 14:08:00 Start Date: 12/17/13 Stop Date: 12/18/13 Status: Discontinued hydromorphone 0.5 mg, Route: IVP, Q5Min, Dosing Weight 178.636, kg, PRN Pain Score 7-10, Start date: 12/17/13 14:45:00, Duration: 4 doses or times, Stop date: Limited # of ti mes Start Date: 12/17/13 Stop Date: 12/17/13 Status: Discontinued insulin aspart 4 unit, 0.04 mL, Route: SUB-Q, Drug form: SOLN, Bedtime, Dosing Weight 178.636, kg, PRN Blood Glucose Results, Start date: 12/17/13 16:20:00, Duration: 30 day, Stop date: 01/16/14 16:19:00 Notes: Roll in palms of hands gently; Do not shake vigorously. (Same as: NovoLO G)"single patient use only" Stable for 28 days at room temperature.Expires in _ ____ days from Date Start Date: 12/17/13 Stop Date: 12/18/13 Status: Discontinued insulin aspart 3 unit, 0.03 mL, Route: SUB-Q, Drug form: SOLN, Bedtime, Dosing Weight 178.636, kg, PRN Blood Glucose Results, Start date: 12/17/13 16:20:00, Duration: 30 day, Stop date: 01/16/14 16:19:00 Notes: Roll in palms of hands gently; Do not shake vigorously. (Same as: NovoLO G)"single patient use only" Stable for 28 days at room temperature.Expires in _ ____ days from Date Start Date: 12/17/13 Stop Date: 12/18/13 Status: Discontinued insulin aspart 2 unit, 0.02 mL, Route: SUB-Q, Drug form: SOLN, Bedtime, Dosing Weight 178.636, kg, PRN Blood Glucose Results, Start date: 12/17/13 16:20:00, Duration: 30 day, Stop date: 01/16/14 16:19:00 Notes: Roll in palms of hands gently; Do not shake vigorously. (Same as: NovoLO G)"single patient use only" Stable for 28 days at room temperature.Expires in _ ____ days from Date Start Date: 12/17/13 Stop Date: 12/18/13 Status: Discontinued insulin aspart 1 unit, 0.01 mL, Route: SUB-Q, Drug form: SOLN, Bedtime, Dosing Weight 178.636, kg, PRN Blood Glucose Results, Start date: 12/17/13 16:20:00, Duration: 30 day, Stop date: 01/16/14 16:19:00 Notes: Roll in palms of hands gently; Do not shake vigorously. (Same as: NovoLO G)"single patient use only" Stable for 28 days at room temperature.Expires in _ ____ days from Date Start Date: 12/17/13 Stop Date: 12/18/13 Status: Discontinued insulin aspart 4 unit, 0.04 mL, Route: SUB-Q, Drug form: SOLN, TID-Before Meals, Dosing Weight 178.636, kg, PRN Blood Glucose Results, Start date: 12/17/13 16:20:00, Duration: 30 day, Stop date: 01/16/14 16:19:00 Notes: Roll in palms of hands gently; Do not shake vigorously. (Same as: NovoLO G)"single patient use only" Stable for 28 days at room temperature.Expires in _ ____ days from Date Start Date: 12/17/13 Stop Date: 12/18/13 Status: Discontinued insulin aspart 2 unit, 0.02 mL, Route: SUB-Q, Drug form: SOLN, TID-Before Meals, Dosing Weight 178.636, kg, PRN Blood Glucose Results, Start date: 12/17/13 16:20:00, Duration: 30 day, Stop date: 01/16/14 16:19:00 Notes: Roll in palms of hands gently; Do not shake vigorously. (Same as: NovoLO G)"single patient use only" Stable for 28 days at room temperature.Expires in _ ____ days from Date Start Date: 12/17/13 Stop Date: 12/18/13 Status: Discontinued insulin aspart 6 unit, 0.06 mL, Route: SUB-Q, Drug form: SOLN, TID-Before Meals, Dosing Weight 178.636, kg, PRN Blood Glucose Results, Start date: 12/17/13 16:20:00, Duration: 30 day, Stop date: 01/16/14 16:19:00 Notes: Roll in palms of hands gently; Do not shake vigorously. (Same as: NovoLO G)"single patient use only" Stable for 28 days at room temperature.Expires in _ ____ days from Date Start Date: 12/17/13 Stop Date: 12/18/13 Status: Discontinued insulin aspart 10 unit, 0.1 mL, Route: SUB-Q, Drug form: SOLN, TID-Before Meals, Dosing Weight 178.636, kg, PRN Blood Glucose Results, Start date: 12/17/13 16:20:00, Duration: 30 day, Stop date: 01/16/14 16:19:00 Notes: Roll in palms of hands gently; Do not shake vigorously. (Same as: NovoLO G)"single patient use only" Stable for 28 days at room temperature.Expires in _ ____ days from Date Start Date: 12/17/13 Stop Date: 12/18/13 Status: Discontinued insulin aspart 8 unit, 0.08 mL, Route: SUB-Q, Drug form: SOLN, TID-Before Meals, Dosing Weight 178.636, kg, PRN Blood Glucose Results, Start date: 12/17/13 16:20:00, Duration: 30 day, Stop date: 01/16/14 16:19:00 Notes: Roll in palms of hands gently; Do not shake vigorously. (Same as: NovoLO G)"single patient use only" Stable for 28 days at room temperature.Expires in _ ____ days from Date Start Date: 12/17/13 Stop Date: 12/18/13 Status: Discontinued Lactated Ringers Injection IV 1,000 mL 1,000 mL, Rate: 125 ml/hr, Infuse over: 8 hr, Route: IV, Dosing Weight 178.636 k g, Total Volume: 1,000, Start date: 12/17/13 14:09:00, Duration: 30 day, Stop da te: 01/16/14 14:08:00 Start Date: 12/17/13 Stop Date: 12/18/13 Status: Discontinued Lactated Ringers Injection IV 1,000 mL 1,000 mL, Rate: 125 ml/hr, Infuse over: 8 hr, Route: IV, Dosing Weight 178.636 k g, Total Volume: 1,000, Start date: 11/24/13 16:17:00, Duration: 25 day, Stop da te: 12/19/13 16:16:00 Start Date: 11/24/13 Stop Date: 12/18/13 Status: Discontinued LR IV 1,000 mL 1,000 mL, Rate: 125 ml/hr, Infuse over: 8 hr, Route: IV, Dosing Weight 178.636 k g, Total Volume: 1,000, Start date: 12/17/13 14:09:00, Duration: 30 day, Stop da te: 01/16/14 14:08:00 Start Date: 12/17/13 Stop Date: 12/18/13 Status: Discontinued [id number] 1,000 mL 1,000 mL, Rate: 100 ml/hr, Infuse over: 10 hr, Route: IV, Dosing Weight 178.636 kg, Total Volume: 1,000, Start date: 11/24/13 16:17:00, Duration: 25 day, Stop d ate: 12/19/13 16:16:00 Start Date: 11/24/13 Stop Date: 12/18/13 Status: Discontinued metoclopramide 10 mg, 2 mL, Route: IVP, Drug form: INJ, Q8H-05, Dosing Weight 179.091, kg, Star t date: 12/17/13 21:00:00, Duration: 30 day, Stop date: 01/16/14 13:00:00 Notes: (Same as: Reglan) Start Date: 12/17/13 Stop Date: 12/18/13 Status: Discontinued metoprolol 2.5 mg, 2.5 mL, Route: IVP, Drug form: INJ, Q6H, Dosing Weight 178.636, kg, PRN Elevated BP, Systolic BP >180 or Diastolic BP >100, Start date: 12/17/13 14:09:00, Duration: 30 day, Stop date: 01/16/14 14:08:00 Notes: (Same as: Lopressor)Push over 2 minutes Start Date: 12/17/13 Stop Date: 12/18/13 Status: Discontinued metoprolol 1 mg, Route: IVP, Q5Min, Dosing Weight 178.636, kg, PRN Other -See Comment, Star t date: 12/17/13 14:45:00, Duration: 5 doses or times, Stop date: Limited # of t imes Start Date: 12/17/13 Stop Date: 12/17/13 Status: Discontinued naloxone 0.04 mg, Route: IVP, Q2MIN, Dosing Weight 178.636, kg, PRN Narcotic Reversal, St art date: 12/17/13 14:45:00, Duration: 8 doses or times, Stop date: Limited # of times Start Date: 12/17/13 Stop Date: 12/17/13 Status: Discontinued [place] 10/325 oral tablet 1 tab, Route: PO, Dosing Weight 178.636, kg, ONCE, Start date: 12/17/13 14:45:00 , Stop date: 12/17/13 14:45:00 Start Date: 12/17/13 Stop Date: 12/17/13 Status: Discontinued omeprazole 20 mg oral delayed release capsule 20 mg=1 cap, PO, BID, # 60 cap, 0 Refill(s) Start Date: 12/18/13 Stop Date: 01/17/14 Status: Ordered ondansetron 4 mg, 2 mL, Route: IVP, Drug form: INJ, Q4H, Dosing Weight 179.091, kg, Start da te: 12/17/13 16:00:00, Duration: 30 day, Stop date: 01/16/14 12:00:00 Notes: (Same as: Zofran) Start Date: 12/17/13 Stop Date: 12/18/13 Status: Discontinued ondansetron 4 mg, Route: IVP, ONCE, Dosing Weight 178.636, kg, PRN Nausea & Vomiting, Start date: 12/17/13 14:45:00 Start Date: 12/17/13 Stop Date: 12/17/13 Status: Completed oxyCODONE 5 mg, Route: PO, Drug form: TAB, Q4H, Dosing Weight 178.636, kg, PRN Pain Score 4-6, Start date: 12/17/13 14:45:00, Duration: 30 day, Stop date: 01/16/14 14:44: 00 Start Date: 12/17/13 Stop Date: 12/17/13 Status: Discontinued promethazine 25 mg, 1 supp, Route: ID, Drug form: SUPP, Q4H, Dosing Weight 179.091, kg, PRN N ausea & Vomiting, Start date: 12/17/13 14:09:00, Duration: 30 day, Stop date: 01/16/14 14:08:00 Notes: (Same as: Phenergan) Start Date: 12/17/13 Stop Date: 12/18/13 Status: Discontinued promethazine 12.5 mg, 0.5 mL, Route: IM, Drug form: INJ, Q4Hnow, Dosing Weight 179.091, kg, S tart date: 12/17/13 17:00:00, Duration: 30 day, Stop date: 01/16/14 13:00:00 Notes: Do not give IV push. (Same as: Phenergan) Start Date: 12/17/13 Stop Date: 12/18/13 Status: Discontinued scopolamine 1.5 mg transdermal film 1 patch, Route: TOP, Drug Form: ERFILM, Dosing Weight 179.091, kg, ONCE, Start d ate: 11/24/13 16:17:00, Stop date: 11/24/13 16:17:00 Notes: Change patch every 72 hours (Same as: Transderm-Scop) Start Date: 11/24/13 Stop Date: 11/24/13 Status: Completed Tylenol with Codeine 120 mg-12 mg/5 mL oral liquid 15 ml, PO, Q4H, Pain, Q4-6H as needed for pain, # 240 mL, 0 Refill(s) Special Instructions: Q4-6H as needed for pain Start Date: 12/18/13 Status: Ordered Results ELECTROLYTES Most recent to 1 oldest [Reference Range]: Sodium Lvl [135-145 141 mEq/L mEq/L] (12/18/13 4:07 AM) Potassium Lvl 3.6 mEq/L [3.5-5.1 mEq/L] (12/18/13 4:07 AM) Chloride Lvl [95-109 103 mEq/L mEq/L] (12/18/13 4:07 AM) CO2 [24-32 mEq/L] 28 mEq/L (12/18/13 4:07 AM) AGAP [10.0-20.0 13.6 mEq/L mEq/L] (12/18/13 4:07 AM) CHEM PANEL Most recent to 1 oldest [Reference Range]: Creatinine Lvl 0.7 mg/dL [0.5-1.4 mg/dL] (12/18/13 4:07 AM) eGFR 137 mL/min/1.73m2 1 *NA* (12/18/13 4:07 AM) BUN [7-22 mg/dL] 4 mg/dL *LOW* (12/18/13 4:07 AM) B/C Ratio [6-25] 6 (12/18/13 4:07 AM) Glucose Lvl [70-99 122 mg/dL 2 mg/dL] *HI* (12/18/13 4:07 AM) Total Protein 6.9 g/dL [6.4-8.4 g/dL] (12/18/13 4:07 AM) Albumin Lvl [3.5-5.0 3.3 g/dL g/dL] *LOW* (12/18/13 4:07 AM) Globulin [2.0-4.0 3.6 g/dL g/dL] (12/18/13 4:07 AM) A/G Ratio [0.7-1.6] 0.9 (12/18/13 4:07 AM) Calcium Lvl 8.3 mg/dL [8.5-10.5 mg/dL] *LOW* (12/18/13 4:07 AM) ALT [0-65 unit/L] 36 unit/L (12/18/13 4:07 AM) AST [0-37 unit/L] 19 unit/L (12/18/13 4:07 AM) Alk Phos [39-136 66 unit/L unit/L] (12/18/13 4:07 AM) Bili Total [0.2-1.3 0.6 mg/dL mg/dL] (12/18/13 4:07 AM) 1Result Comment: The eGFR is calculated using [...] values reflect the clinical guidelines of the [place] [employer]. HEMATOLOGY Most recent to 1 oldest [Reference Range]: WBC [3.7-10.4 K/CMM] 12.9 K/CMM *HI* (12/18/13 4:07 AM) RBC [4.70-6.10 4.49 M/CMM M/CMM] *LOW* (12/18/13 4:07 AM) Hgb [14.0-18.0 g/dL] 13.5 g/dL *LOW* (12/18/13 4:07 AM) Hct [42.0-54.0 %] 40.4 % *LOW* (12/18/13 4:07 AM) MCV [80.0-94.0 fL] 90.0 fL (12/18/13 4:07 AM) MCH [27.0-31.0 pg] 30.0 pg (12/18/13 4:07 AM) MCHC [32.0-36.0 33.4 g/dL g/dL] (12/18/13 4:07 AM) RDW [11.5-14.5 %] 13.4 % (12/18/13 4:07 AM) Platelet [133-450 290 K/CMM K/CMM] (12/18/13 4:07 AM) MPV [7.4-10.4 fL] 7.4 fL (12/18/13 4:07 AM) Segs [45.0-75.0 %] 77.6 % *HI* (12/18/13 4:07 AM) Lymphocytes 13.1 % [20.0-40.0 %] *LOW* (12/18/13 4:07 AM) Monocytes [2.0-12.0 9.0 % %] (12/18/13 4:07 AM) Eosinophils [0.0-4.0 0.1 % %] (12/18/13 4:07 AM) Basophils [0.0-1.0 0.2 % %] (12/18/13 4:07 AM) Segs-Bands # 10.0 K/CMM [1.5-8.1 K/CMM] *HI* (12/18/13 4:07 AM) Lymphocytes # 1.7 K/CMM [1.0-5.5 K/CMM] (12/18/13 4:07 AM) Monocytes # [0.0-0.8 1.2 K/CMM K/CMM] *HI* (12/18/13 4:07 AM) Medications Administered During Your Visit No data available for this section Immunizations No data available for this section Procedures Procedure Type Body Site Date of Procedure Related Diagnosis Esophagogastroduodenoscop y Social History Social History Type Response Smoking Status Current every day smoker, Type: Cigars, Exposure to Tobacco Smoke None, Cigarette Smoking Last 365 Days No, Reg Smoking Cessation Counseling No Assessment and Plan Extracted from: Title: Clinical Document Author: Sam Lane DO Date: 12/18/13 Progress Daily [facility] Completed: Dec, 11:[address] DO RM: 234 - 1D, SE [id number] (: 1975) M Attending: Sam Lane DOPhone: Service: Internal Medicine Reason for Admission: 278.01/56415 Working DRG: MISC DISORDERS OF NUTRITION,METABOLISM,FLUIDS/ELECTROLYTES W/[place] [facility] [place] Code status: None Specified=FULL CODECurrent diet: Isolation: None Documented Allergies: NKDA SUBJECTIVE Patient seen and examined. Events noted overnight. Labs/Images reviewed doing better, tolerating diet OBJECTIVE Labs (Last four charted values) WBC H 12.9(DEC 18) Hgb L 13.5(DEC 18) Hct L 40.4(DEC 18) Plt 290(DEC 18) Na 141(DEC 18) K 3.6(DEC 18) CO2 28(DEC 18) Cl 103(DEC 18) Cr 0.7(DEC 18) BUN L 4(DEC 18) Glucose Random H 122(DEC 18) Ca L 8.3(DEC 18) ASSESSMENT & EXAM Gen: NAD, Alert, Awake HEENT: NC/AT, PERRLA, oral area clear and moist Neck: No LAD, No JVD, trachea midline Chest: CTAB, no c/w/r CV: RRR, S1, S2 GI: +BS, S, NT, mild distention, incision site with dermabond, No organomegaly Ext: no c/c/e Neuro: AOx3, no gross deficits noted Skin: No notable rashes PLAN & TREATMENT tolerating diet doing better ok to d/c home today leukocytes due to surgery d/w post op instruction DIAGNOSES & PROBLEMS 1. Morbid obesity, BMI 60, status post laparoscopic sleeve gastrectomy with possible hiatal hernia repair. 2. Type 2 diabetes. Ready for Discharge (Yes/No)? Guillen still necessary (Yes/No): Line still necessary (Yes/No): 24hr Labs 12/18 06 Glucose YET912 H 12/18 0407 Sodium Cql928 Potassium Lvl3.6 Chloride Wwr493 CO228 AGAP13.6 Glucose Dte697 H Creatinine Lvl0.7 BUN4 L B/C Ratio6 Total Protein6.9 Albumin Lvl3.3 L Globulin3.6 A/G Ratio0.9 Calcium Lvl8.3 L ALT36 AST19 Alk Phos66 Bili Total0.6 rRBT385 WBC12.9 H RBC4.49 L Hgb13.5 L Hct40.4 L MCV90.0 MCH30.0 MCHC33.4 RDW13.4 Psajspqh871 MPV7.4 Segs77.6 H Monocytes9.0 Ubvmckbkcpn25.1 L Eosinophils0.1 Basophils0.2 Segs-Bands #10.0 H Lymphocytes #1.7 Monocytes #1.2 H 12/17 2119 Glucose QWS495 H VitalsTmp(F)[id number] 12/18 08:0098.983249/7318------ 12/18 07:32 2096 21% 12/18 03:3798.748591/093427--- 12/18 03:10 100 35% 12/17 23:2098.067802/5621686--- 24 Hr Tmax: 98.9F (37.17c) at 12/18 08:00Vital Signs are the last 5 in the past 48 hours. DateWt(kg)Wt(lb)Ht(cm)Ht(in)Method .09 372.00Stated 11/24 (initial)178.64 393.00Measured 80.34 71.00Stated I&ORecordInOutBal 12/723hr Tot 14 0 14 12/623hr Tot 1362 700 662 Medications (30) Active Scheduled Meds (6): 12/18/13 enoxaparin 30 mg SUB-Q [id number] 12/17/13 famotidine 20 mg IVP Q12H 12/17/13 metoclopramide 10 mg IVP Q8H-05 12/17/13 ondansetron 4 mg IVP Q4H 12/17/13 promethazine 12.5 mg IM Q4Hnow 12/17/13 sucralfate (Carafate 1 g/10 mL oral suspension) 1 gm PO QID-Before Meals Unscheduled Meds (2): 11/24/13 aprepitant (Emend) 40 mg PO PRE OP 11/24/13 ceFAZolin 2 gm IVPB ONCALL 200 ml/hr PRN Meds (16): 12/17/13 Dextrose 50% in Water IV (Dextrose 50% Syringe) 12.5 gm IVP PRN 12/17/13 Dextrose 50% in Water IV (Dextrose 50% Syringe) 25 gm IVP PRN 12/18/13 acetaminophen 650 mg PO Q4H 12/17/13 glucagon 1 mg IM PRN 12/17/13 hydromorphone 0.5 mg IV Q3H 12/17/13 insulin aspart 2 unit SUB-Q TID-Before Meals 12/17/13 insulin aspart 4 unit SUB-Q TID-Before Meals 12/17/13 insulin aspart 6 unit SUB-Q TID-Before Meals 12/17/13 insulin aspart 8 unit SUB-Q TID-Before Meals 12/17/13 insulin aspart 10 unit SUB-Q TID-Before Meals 12/17/13 insulin aspart 1 unit SUB-Q Bedtime 12/17/13 insulin aspart 2 unit SUB-Q Bedtime 12/17/13 insulin aspart 3 unit SUB-Q Bedtime 12/17/13 insulin aspart 4 unit SUB-Q Bedtime 12/17/13 metoprolol 2.5 mg IVP Q6H 12/17/13 promethazine 25 mg ID Q4H One Time Meds (2): 12/17/13 (Discontinued) acetaminophen-hydrocodone ([place] 10/325 oral tablet) 1 tab PO ONCE 12/17/13 (Completed) ceFAZolin 2 gm IV ONCE Continuous Infusions (4): 11/24/13 Lactated Ringers Injection IV 1,000 mL 1,000 mL 125 ml/hr 11/24/13 Lactated Ringers Injection IV 1,000 mL (ru347m 1,000 mL) 1,000 mL 100 ml/hr 12/17/13 Lactated Ringers Injection IV 1,000 mL 1,000 mL 125 ml/hr 12/17/13 Lactated Ringers Injection IV 1,000 mL (LR IV 1,000 mL) 1,000 mL 125 ml/hr
[2017-12-17 14:30] VITALS: BP 128/70
== END | disposition home or self-care (01) ==
LOC: OR 10:38
PROVIDERS: ATTEND Ophthalmology
DX: H25.042 Posterior subcapsular polar age-related cataract, left eye (principal); H25.12 Age-related nuclear cataract, left eye; G47.33 Obstructive sleep apnea (adult) (pediatric); I10 Essential (primary) hypertension; E78.5 Hyperlipidemia, unspecified; E11.9 Type 2 diabetes mellitus without complications; B15.9 Hepatitis A without hepatic coma; Z01.810 Encounter for preprocedural cardiovascular examination; Z79.84 Long term (current) use of oral hypoglycemic drugs
CPT/HCPCS: 36415; 66984; 82948; 93005; J2250; V2632